=== PATIENT | female | born 2000 | race African-American/Black ===

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

== ENCOUNTER 2022-07-28 13:28 | Emergency (ER) | payer OTHER ==
[~2022-07-28] VITALS: Ht 160 cm; Wt 63.6 kg
[~2022-07-28 13:28] MED LIST changes: +FLUT110H IH; -FLUT110HFA IH; -PRED20B
[2022-07-28] MEDS ORDERED: ALBUTEROL SULFATE 2.5 MG/0.5 ML NEB SOLUTION NEB ONE (13:45)
[2022-07-28] MEDS ORDERED: MethylPREDNISolone SOD SUCC 125 MG/2 ML VIAL IVP ONE (13:45)
[2022-07-28] MEDS ORDERED: IPRATROPIUM BROMIDE 0.5 MG/2.5 ML NEB SOLUTION NEB ONE (13:45)
[2022-07-28] MEDS ORDERED: EPINEPHrine 1:1,000 [1 MG/ML] VIAL SQ ONE (13:45)
[2022-07-28 13:54] LABS: HEMATOCRIT 42.2 % (36-46); HEMOGLOBIN 14.1 g/dL (12.0-16.0); MEAN CORPUSCULAR HEMOGLOBIN 29.2 pg (26.0-34.0); MEAN CORPUSCULAR HGB CONC 33.4 G/dL (31.0-37.0); MEAN CORPUSCULAR VOLUME 87 fL (80-100); PLATELET COUNT (AUTO) 415 K/uL (150-450); RED BLOOD CELL COUNT(AUTO) 4.83 MIL/uL (4.00-5.20); RED CELL DISTRIBUTION WIDTH 14.9 % (11.5-14.5)
[2022-07-28 14:03] LABS: ANION GAP 11 mmol/L (8-16); CARBON DIOXIDE 25 mmol/L (22-29); CHLORIDE 100 mmol/L (98-107); CREATININE 0.68 mg/dL (0.60-1.30); GLUCOSE,RANDOM 166 mg/dL (70-110); POTASSIUM 3.4 mmol/L (3.5-5.1); SODIUM SERUM 136 mmol/L (136-145)
[2022-07-28 14:04] LABS: CALCIUM, TOTAL 9.4 mg/dL (8.8-10.5); GLOMERULAR FILTR. RATE CALC > 60 mL/min (>60)
[2022-07-28 14:13] LABS: BAND NEUTROPHILS % (MANUAL) 3 % (0-5); LYMPHOCYTES % (MANUAL) 65 % (22-44); MONOCYTES % (MANUAL) 1 % (2-9); SEGMENTED NEUTROPHILS % 31 % (40-70)
[2022-07-28] MEDS ORDERED: DiphenhydrAMINE HCL 50 MG/ML VIAL IVP ONE (14:30)
[2022-07-28] MEDS ORDERED: EPIN0.3P3 IM (15:42)
[2022-07-28] MEDS ORDERED: PRED-554 PO (15:42)
[2022-07-28] MEDS ORDERED: DIPH50CA37 PO (15:42)
[2022-07-28 15:45] VITALS: BP 118/67
== END 2022-07-28 16:16 | disposition home or self-care (01) ==
LOC: EMS 13:33
DX: T78.09XA Anaphylactic reaction due to other food products, initial encounter (principal); J45.909 Unspecified asthma, uncomplicated; Z91.010 Allergy to peanuts; Z91.018 Allergy to other foods
CPT/HCPCS: 99291; 96374; 96375; 80048; 84703; 85025; 36415; 94640; 96372; J1200; J0171; J2930